=== PATIENT | female | born 1985 | race Caucasian/White ===

== ENCOUNTER → 2017-02-16 | Outpatient (CLI) | payer OTHER ==
[2017-02-16 18:02] LABS: CALCIUM 9.6 mg/dl (8.5-10.1)
[2017-02-16 18:08] LABS: BLOOD UREA NITROGEN 9 mg/dl (7-18); BUN/CREATININE RATIO 13.7 (10-20); CARBON DIOXIDE 29 mmol/L (21-32); CHLORIDE 103 mmol/L (98-107); CREATININE 0.67 mg/dl (0.60-1.20); GLUCOSE 82 mg/dl (70-99); SODIUM 140 mmol/L (136-145)
== END | disposition home or self-care (01) ==
LOC: C.LAB1850 16:38
PROVIDERS: ATTEND Nurse Practitioner Adult Health
DX: E03.9 Hypothyroidism, unspecified (principal); F41.9 Anxiety disorder, unspecified

== ENCOUNTER → 2017-03-02 | Outpatient (CLI) | payer OTHER ==
--- NOTE | 2017-03-02 14:36 | DIAGNOSTIC IMAGING REPORT ---
ULTRASOUND OF THE THYROID GLAND CLINICAL HISTORY: Thyroid nodule. COMPARISON STUDY: No priors. TECHNIQUE: Real-time, grayscale, and color flow sonography of the thyroid gland is performed utilizing a high-frequency linear transducer. Images are reviewed in the transverse and longitudinal planes. FINDINGS: Right lobe: The right lobe of the thyroid gland is normal in size and homogeneous in echotexture, measuring 3.9 x 1.4 x 1.4 cm. Left lobe: The left lobe of the thyroid gland is normal in size and homogeneous in echotexture, measuring 4.4 x 1.0 x 1.4 cm. Isthmus: The thyroid isthmus is normal in appearance and measures 0.3 cm in AP diameter. IMPRESSION: Unremarkable sonographic assessment of the thyroid gland. Electronically signed by: Rickie Yeager M.D. 03/02/2017 2:34 PM Dictated Date/Time: 03/02/2017 2:34 PM
== END | disposition home or self-care (01) ==
LOC: C.ULTR 14:11
PROVIDERS: ATTEND Internal Medicine Endocrinology, Diabetes & Metabolism
DX: E04.1 Nontoxic single thyroid nodule (principal)

== ENCOUNTER → 2017-03-09 | Outpatient (CLI) | payer OTHER ==
[2017-03-09 14:19] LABS: CALCULATED INSULIN SENSITIVITY 0.325; GLUCOSE LOG 1.9542; INSULIN FASTING 13.4 mU/L (3-25); INSULIN LOG 1.1271
[2017-03-09 14:20] LABS: THYROID STIMULATING HORMONE 1.56 uIu/ml (0.300-4.500)
== END | disposition home or self-care (01) ==
LOC: C.LAB1850 11:28
PROVIDERS: ATTEND Internal Medicine Endocrinology, Diabetes & Metabolism
DX: E03.9 Hypothyroidism, unspecified (principal); L68.0 Hirsutism; R19.7 Diarrhea, unspecified

== ENCOUNTER → 2017-04-06 | Outpatient (CLI) | payer OTHER ==
[2017-04-06 13:54] LABS: THYROID STIMULATING HORMONE 2.65 uIu/ml (0.300-4.500)
== END | disposition home or self-care (01) ==
LOC: C.LAB1850 11:18
PROVIDERS: ATTEND Internal Medicine Endocrinology, Diabetes & Metabolism
DX: L68.0 Hirsutism (principal); E28.2 Polycystic ovarian syndrome

== ENCOUNTER → 2017-09-23 | Outpatient (CLI) | payer OTHER ==
[2017-09-23 10:30] LABS: HEMOGLOBIN A1C 5.2 % (4.5-5.6)
== END | disposition home or self-care (01) ==
LOC: C.LAB1850 09:00
PROVIDERS: ATTEND Internal Medicine Endocrinology, Diabetes & Metabolism
DX: E03.9 Hypothyroidism, unspecified (principal); R19.7 Diarrhea, unspecified; L68.0 Hirsutism; E06.3 Autoimmune thyroiditis; E28.2 Polycystic ovarian syndrome

== ENCOUNTER → 2018-04-01 | Outpatient (CLI) | payer OTHER ==
--- NOTE | 2018-04-01 08:37 | DIAGNOSTIC IMAGING REPORT ---
(MARK ANTHONY/BLAD)RETROPERITON COMP CLINICAL HISTORY: 32 years-old Female presenting with N39.0 UTI (urinary tract infection)Concern of kidney stones. TECHNIQUE: Real-time grayscale and limited color Doppler ultrasound imaging of the kidneys and bladder was performed. COMPARISON: None. FINDINGS: Right kidney: Normal echogenicity of renal parenchyma. Right kidney measures 11.2 cm. Mild pelviectasis. No hydronephrosis. No convincing evidence of calculus or mass. Left kidney: Normal echogenicity of renal parenchyma. Left kidney measures 11.5 cm. No hydronephrosis. No convincing evidence of calculus or mass. Bladder: Normal. Bilateral ureteral jets present. Other: None. IMPRESSION: 1. Mild right pelviectasis, nonspecific. No convincing evidence of hydronephrosis. Electronically signed by: Edward Abrams M.D. 04/01/2018 8:35 AM Dictated Date/Time: 04/01/2018 8:34 AM
== END | disposition home or self-care (01) ==
LOC: C.ULTR 08:09
PROVIDERS: ATTEND Physician Assistant
DX: N39.0 Urinary tract infection, site not specified (principal)

== ENCOUNTER → 2018-04-07 | Outpatient (CLI) | payer OTHER | END | disposition home or self-care (01) | LOC: C.LAB1850 15:19 | PROVIDERS: ATTEND Nurse Practitioner Adult Health | DX: R30.0 Dysuria (principal); R10.9 Unspecified abdominal pain ==

== ENCOUNTER 2023-10-09 15:52 | Inpatient (IN) ==
[2023-10-09] MEDS ORDERED: LIDOCAINE 1% LOCAL 20 ML VIAL INFIL PRN (16:22)
[2023-10-09] MEDS ORDERED: LACTATED RINGER'S 1,000 ML IV PRN (16:22)
--- NOTE | 2023-10-09 16:38 | History & Physical Report ---
Date of Service October 09, 2023 Assessment & Plan (1) GDM (gestational diabetes mellitus): (2) Hypothyroid in , antepartum: Plan 38 yo G1 at 41 1/7 wga presents after attempted homebirth with animal keeper head VSJinny BNENETTT reassuring thus far, difficult to trace Labor - SVE for me /-1, palpable thin forebag. I discussed my concern that she has apparently been 8cm for a number of hours, animal keeper head tells me my station sounds like progress from her last check earlier today. Discussed possibility that forebag is the limiting factor but possible that there is cpd and that is why she has not delivered yet either. Discussed possibly just needs pitocin to help augment. She is not sure if she wants an epidural at this point, she was just fatigued from trying this at home without anything else. Discussed would not be a candidate for stadol given advanced dilation. She inquires what would be required for staying and I discussed at least an IV and labs, as long as fetus remains reassuring. Discussed arom to try to help augment, pitocin as well. But again discussed concern for possible need for CS given slow progress, possibly bigger baby given now 41+ weeks. She would like to discuss options with partner and animal keeper head. She is accepting of IV and labs to start GBS neg Admission and Anticipated Discharge Date Admission Date: October 09, 2023 History of Present Illness Chief Complaint: contractions, attempted delivery at home Primary Care Provider: TRI Chairez 38 yo G1 at 41 1/7 wga presents w/ contractions. Last seen at 39 1/7 wga on 09/25 after successful ECV 09/12. Has been working w/ animal keeper head group as well. She notes evening of 10/07 she started leaking fluid and continued to labor at home with them. Current animal keeper head that is with her and her partner says that at 2am, she was 7cm. She made it to 8cm around 10-11am, however a forebag was also palpated during this time. She says that the head was -3 at that time. Pt presented to L&D as she is just fatigued at this point, she is not sure if she wants an epidural or plan. 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 Allergies Allergy/AdvReac Type Severity Reaction Status Date / Time amoxicillin [From Augmentin] Allergy Unknown Hives Verified 09/25/23 15:53 cefaclor [From Ceclor] Allergy serum Verified 09/25/23 15:53 sickness ciprofloxacin [From Cipro] Allergy Gastrointestinal Verified 09/25/23 15:53 Upset clavulanic acid Allergy Hives Verified 09/25/23 15:53 [From Augmentin] gluten Allergy Gastrointestinal Verified 09/25/23 15:53 Upset Tdap Allergy Unknown Unknown Uncoded 09/25/23 15:53 Home Medications Medication Instructions Recorded Confirmed Type acetone (urine) test (Ketone Urine #50 04/10/23 09/25/23 Rx Test strips) blood sugar diagnostic (OneTouch #150 04/10/23 09/25/23 Rx Verio test strips) blood-glucose meter (OneTouch #1 04/10/23 09/25/23 Rx Verio Reflect Meter) lancets 33 gauge #150 04/10/23 09/25/23 Rx levothyroxine 50 mcg tablet 50 mcg PO DAILY 90 days #90 tabs 08/31/23 09/25/23 Rx albuterol sulfate 90 mcg/actuation UNKNOWN PRN shortness of breath or 09/12/23 09/25/23 History aerosol inhaler (Ventolin HFA) wheezing prenat.vits,cristian,reu-wczl-ukuuf 1 tab PO DAILY 09/12/23 09/25/23 History Patient History Medical History (Updated 09/12/23 @ 09:13 by Tez Ramey MD) Long COVID History of chicken pox Elderly primigravida Subclinical hypothyroidism COVID-19 Hyperlipidemia Anxiety Surgical History History of tonsillectomy Family History Father Arthritis Grandmother (Paternal) Stroke Colorectal cancer Mother Hypertension Thyroid disease Grandmother (Maternal) Thyroid cancer Colorectal cancer Grandfather (Paternal) Prostate cancer Aunt Thyroid disease Grandmother Colorectal cancer Other Breast cancer Social History Smoking Status: Never smoker Second Hand Exposure: No; Do You Dip or Chew Tobacco: No; Hx Alcohol Use: No Hx Substance Use: No Preferred Language: Israeli Communication Ability: Effective Visual Impairment: Limited Hearing Ability: Normal Manager Cardiac Required: No Beliefs That Will Affect Care: None marital status: marital status details: Cory Russo [phone] Current Living Situation: Spouse Current Living Situation Comment: engaged, lives with cory, roomate, dog current occupational status: employed current occupation: [employer] Feels Safe at Home: Yes Childhood Exposure to Second-Hand Smoke: Yes Diet: gluten free and regular caffeine: No Dental Care, Regularly: Yes Physical Activity Frequency: 3-4 Times per Week Seatbelt Use: always Sunscreen Use: Yes Do you think of yourself as: straight/heterosexual Assistive Devices: None Physical Exam Genitourinary: OB Exam Abdomen: + vertex (confirmed by bsus) and + estimated weight (8-9) Manual OB Exam: + cervical dilation 8 cm, + cervical effacement 90% and + station -1 OB Exam Monitor Tracing: + external FHT monitor used, + external uterine monitor used (q6) and + category I forebag palpated Results & Data Vital Signs (Past 12 Hours) Vital Signs Pulse BP 10/09/23 15:59 89 136/89 Laboratory Results OB Labs: Blood Type B Positive 09/12/23 Antibody Screen NEGATIVE 09/12/23 Hemoglobin 13.5 g/dl (12.0-16.0) 09/12/23 Hematocrit 38.9 % (37.0-47.0) 09/12/23 Mean Corpuscular Volume 84.7 fL (80.0-100.0) 09/12/23 Platelet Count 220 K/uL (130-400) 09/12/23 Rubella IgG Antibody Immune (Immune) 03/09/23 Rapid Plasma Reagin Nonreactive (Nonreactive) 03/09/23 Hepatitis B Surface Antigen. NON-REACTIVE (NON-REACTIVE) 03/09/23 Hepatitis C Antibody (EIA) NON-REACTIVE (NON-REACTIVE) 03/09/23 HIV (1&2) Ag and Ab Confirmation NON-REACTIVE (NON-REACTIVE) 03/09/23 Glucose 1 Hour 50 gm Load 160 mg/dl (70-130) H 04/23/23 OB Optional Labs: Chlamydia trachomatis RNA Not Detected (NotDetected) 03/09/23 Neisseria gonorrhoeae RNA Not Detected (NotDetected) 03/09/23 Thyroid Stimulating Hormone (TSH) 1.693 uIu/ml (0.300-4.500) 07/07/23 Labs Reviewed: GBS neg low risk cfdna - sln Diagnostic Findings anterior plac Coding Level of Care Code None Diagnoses GDM (gestational diabetes mellitus) O24.419 Hypothyroid in , antepartum O99.280; E03.9
[2023-10-09 16:43] LABS: Hematocrit (blood only) 41.2 % (37.0-47.0); Hemoglobin 14.3 g/dl (12.0-16.0); Mean Corpuscular Hemoglobin 29.2 pg (25.0-34.0); Mean Corpuscular Hgb Conc 34.7 g/dL (32.0-36.0); Mean Corpuscular Volume 84.3 fL (80.0-100.0); Mean Platelet Volume 9.8 fL (9.4-12.4); Platelet Count 199 K/uL (130-400); RDW Coefficient of Variation 13.5 % (11.5-14.5); RDW Standard Deviation 41.8 fL (36.4-46.3); Red Blood Count 4.89 M/uL (4.20-5.40)
--- NOTE | 2023-10-09 17:50 | Labor Progress Brief Note ---
Date of Service October 09, 2023 Subjective pt accepts arom, labs have returned Assessment & Plan (1) GDM (gestational diabetes mellitus): (2) Hypothyroid in , antepartum: Plan 38 yo G1 at 41 1/7 wga presents after attempted homebirth with jig box operator VSS NST reassuring thus far, difficult to trace Labor - Labs returned, pt accepted arom, performed and ?light mec. Discussed will see if this helps ctx, if no change in a few hours would rec pit given prolonged rupture. Ok to augment for now as baby and mom look ok, they will discuss future possibility of pit GBS neg epidural prn Admission and Anticipated Discharge Date Admission Date: October 09, 2023 Physical Exam Genitourinary: Manual OB Exam: + cervical dilation 8 cm, + cervical effacement 90%, + station -1 and + amniotic fluid (arom forebag, light mec?) OB Exam Monitor Tracing: + external FHT monitor used, + external uterine monitor used (q6) and + category I Results & Data Vital Signs (Past 12 Hours) Vital Signs Temp Pulse Resp BP O2 Del Method 10/09/23 17:47 80 132/68 10/09/23 17:29 85 143/80 H 10/09/23 17:16 71 135/76 10/09/23 17:00 83 141/81 H 10/09/23 16:54 97.9 F 18 Room Air 10/09/23 15:59 89 136/89 Coding Level of Care Code None Diagnoses GDM (gestational diabetes mellitus) O24.419 Hypothyroid in , antepartum O99.280; E03.9
--- NOTE | 2023-10-09 21:06 | Labor Progress Brief Note ---
Date of Service October 09, 2023 Subjective presented to assess pushing Assessment & Plan (1) GDM (gestational diabetes mellitus): (2) Hypothyroid in , antepartum: Plan 38 yo G1 at 41 1/7 wga presents after attempted homebirth with school director ERIN KULKARNI reassuring thus far, difficult to trace Labor - Pt pushing for about 45 min. On her back which she does not prefer, some descent of head is noted but feels like soft tissue rather than skull is descending. Seems a little better on hands and knees but still similar. Head feels about +1. Reviewed this with pt, she asks if I need to continue assessing while she is pushing. Discussed I have no other way to assess if progress is being made. Reviewed my findings on exam, which may or may not suggest cpd however she has just started pushing and that it can take time for pushing to demonstrate progress. She verbalized understanding. Will continue to assess Admission and Anticipated Discharge Date Admission Date: October 09, 2023 Results & Data Vital Signs (Past 12 Hours) Vital Signs Temp Pulse Resp BP Pulse Ox O2 Del Method 10/09/23 20:56 129 H 98 10/09/23 20:51 117 H 98 10/09/23 20:44 112 H 99 10/09/23 20:39 88 99 10/09/23 20:34 106 H 100 10/09/23 20:29 99 H 100 10/09/23 20:24 96 H 100 10/09/23 20:19 93 H 99 10/09/23 19:27 97 H 140/77 10/09/23 19:00 18 10/09/23 19:00 18 10/09/23 18:47 98.1 F 81 140/76 10/09/23 18:00 18 10/09/23 18:00 18 10/09/23 17:59 89 139/77 10/09/23 17:47 80 132/68 10/09/23 17:30 20 10/09/23 17:30 20 10/09/23 17:29 85 143/80 H 10/09/23 17:16 71 135/76 10/09/23 17:00 83 18 141/81 H 10/09/23 16:54 97.9 F 18 Room Air 10/09/23 15:59 89 136/89 Coding Level of Care Code None Diagnoses GDM (gestational diabetes mellitus) O24.419 Hypothyroid in , antepartum O99.280; E03.9
[2023-10-09] MEDS: OXYTOCIN 30 UNITS/NSS 30 UNITS/500 ML BAG IV PRN ×2 (22:06→22:35)
[2023-10-09] MEDS ORDERED: OXYTOCIN 30 UNITS/NSS 30 UNITS/500 ML BAG IV PRN (22:53)
[2023-10-09] MEDS ORDERED: HYDROCORTISONE ACETATE 25 MG SUPP PR PRN (22:53)
[2023-10-09] MEDS ORDERED: BENZOCAINE 20% SPRY 85 APPLN/85 GM CAN EXT PRN (22:53)
[2023-10-09] MEDS ORDERED: DIPHTHER/TETAN/PERTUS Vaccine (Tdap, Adol/Adult) 0.5mL IM ONE (22:53)
[2023-10-09] MEDS ORDERED: CLINDAMYCIN/D5W 900 MG/50 ML BAG IV ONE (23:00)
--- NOTE | 2023-10-09 23:03 | Delivery Summary ---
Vaginal Delivery Summary Date of Service October 09, 2023 Vaginal Delivery Summary and 3rd Degree LAC PREOPERATIVE DIAGNOSIS: 1. Single intrauterine at 41 1/7 wga 2. Labor 3. Prolonged rupture of membranes 4. A1GDM 5. Hypothyroid 6. AMA POSTOPERATIVE DIAGNOSIS: 1. Single intrauterine at 41 1/7 wga 2. Labor 3. Prolonged rupture of membranes 4. A1GDM 5. Hypothyroid 6. AMA 7. Delivered PROCEDURE: 1. Normal spontaneous vaginal delivery. SURGEON: Delfina Baker MD ANESTHESIA: Local anesthesia ESTIMATED BLOOD LOSS: 400 mL FLUIDS: Continuous LR. URINE OUTPUT: None. COMPLICATIONS: None. CONDITION: Stable. INDICATIONS: 38 yo G1 at 41 1/7 wga presented for evaluation after spontaneous rupture of membranes two days ago and labor at home. Was laboring at home yesterday with heat treater group and with shift change, her heat treater noted her to be 7cm early this morning and progressed to 8cm with forebag palpated. However due to concern of inability to rupture forebag due to high station and maternal fatigue, she presented for evaluation. On arrival, she was found to be 7-8cm with bulging forebag. She was counseled regarding options and accepted arom of forebag. Following arom of forebag, she continued to progress to complete and desired to push. FINDINGS: A viable male infant, weight pending with Apgars of 8 and 9 at 1 and 5 minutes respectively. SPECIMEN: Cord blood OPERATIVE REPORT: The patient progressed to 10 cm, 100% effaced and +2 station, pushed over intact perineum with anesthesia to deliver a viable male infant, weight and Apgars as above. Head of delivered in VIJI position. No nuchal cord was present. Body and shoulders were delivered without difficulty. was delivered to maternal abdomen and nursing staff. Delayed cord clamping was performed for 60 seconds. Cord was clamped and cut. Cord blood was obtained. Placenta delivered spontaneously intact with 3-vessel cord. IV oxytocin and fundal massage were given for excellent hemostasis. Vagina, cervix, perineum, and placenta were inspected. A 3a degree laceration was noted, rectal exam confirmed no involvement of the rectal mucosa. The capsule was reapproximated using 2-0 vicryl. Remainder of laceration was repaired using 3-0 vicryl in the usual fashion. Rectal exam confirmed no stitches in the rectum. A single dose of clindamycin was given for antibiotic prophylaxis. Sponge and needle counts correct x2. No sponges were left behind. Mother and stable in immediate period. [facility] [place] Vaginal Delivery Charge Vaginal Delivery Codes: 44161 global code for the antepartum, delivery, and post- Delivery Type Details: and 3rd Degree LAC
[2023-10-09] MEDS: IBUPROFEN 600 MG TAB PO PRN (23:28)
[2023-10-10] MEDS: IBUPROFEN 600 MG TAB PO PRN ×4 (04:36→20:47)
--- NOTE | 2023-10-10 06:16 | Obstetrical Progress Note ---
Date of Service <Antonina Hall DO - Last Filed: 10/10/23 06:16> October 10, 2023 Assessment & Plan <Antonina Hall DO - Last Filed: 10/10/23 06:16> (1) care following vaginal delivery: (2) Hypothyroid in , antepartum: (3) GDM (gestational diabetes mellitus): (4) Elderly primigravida: Trimester: third trimester Qualified Code(s): O09.513 - Supervision of elderly primigravida, third trimester Plan Feels well today. Eating well, voiding well, ambulating well. Pain well controlled with prn oral meds. Routine care; OOB, ambulation, diet progression as tolerated. Anticipate discharge 24-48 hours after , likely tomorrow. After discharge will have 6 week follow-up with Dr. Baker. <Delfina Baker MD - Last Filed: 10/10/23 07:43> (1) care following vaginal delivery: (2) Hypothyroid in , antepartum: (3) GDM (gestational diabetes mellitus): (4) Elderly primigravida: Subjective <Antonina Hall DO - Last Filed: 10/10/23 06:16> Pt is a 38 y/o female who is PPD#1 following at 41 weeks. complicated by AMA, GDM, hypothyroidism. Pt states that today she is overall feeling well, just tired. She states she has been up moving around since the delivery, voiding, and tolerating oral intake without issue. She is breast feeding and it has been going well. Her cramping is mild, mostly when breast feeding and she has occasional persistent lochia. She noted that last night she had some chest tightness that is now mostly resolved. No questions or complaints at this time. Would like to maybe go home tomorrow. Constitutional: no fever, no chills or no sweats Respiratory: no dyspnea Cardiovascular: no chest pain or no palpitations Breast: no breast pain Genitourinary (female): no dysuria Neurologic: no headache(s) no changes in vision, no headaches Physical Exam <Antonina Hall DO - Last Filed: 10/10/23 06:16> General: Alert, oriented. No acute distress. Cardiac: Regular rate and rhythm, no murmurs, rubs, or gallops. Respiratory: Clear to auscultation bilaterally, no wheezes/rales/rhonchi. No increased work of breathing. Symmetrical chest rise. No respiratory distress. Abdomen: Soft, nontender, nondistended. Bowel sounds present. Uterus: Uterine fundus firm, palpable below the umbilicus. Lower extremities: No lower extremity edema or swelling. No deep calf pain. Results & Data <Antonina Hall DO - Last Filed: 10/10/23 06:16> Vital Signs (Past 12 Hours) Vital Signs Temp Pulse Pulse Resp BP BP Pulse Ox 10/10/23 04:18 36.5 C 91 H 18 125/81 97 10/10/23 01:15 37.0 C 20 126/61 97 10/10/23 00:45 18 10/10/23 00:42 82 139/66 10/10/23 00:27 91 H 122/69 10/10/23 00:15 18 10/10/23 00:12 93 H 120/69 10/09/23 23:57 83 121/57 L 10/09/23 23:42 85 139/63 10/09/23 23:40 18 10/09/23 23:27 89 117/61 10/09/23 23:25 18 10/09/23 23:12 85 128/62 10/09/23 23:10 18 10/09/23 22:57 88 131/69 10/09/23 22:55 36.8 C 18 10/09/23 22:55 10/09/23 22:42 83 143/62 H 10/09/23 22:40 36.7 C 85 18 128/62 10/09/23 21:54 123 H 100 10/09/23 21:49 118 H 99 10/09/23 21:46 108 H 85 L 10/09/23 21:44 102 H 99 10/09/23 21:41 114 H 138/67 10/09/23 21:39 112 H 99 10/09/23 21:37 117 H 92 10/09/23 21:36 18 10/09/23 21:36 37.0 C 18 10/09/23 21:34 103 H 99 10/09/23 21:31 114 H 90 10/09/23 21:28 98 H 98 10/09/23 21:23 118 H 98 10/09/23 21:17 105 H 94 10/09/23 21:16 108 H 98 10/09/23 21:12 97 H 91 10/09/23 21:11 105 H 94 10/09/23 21:07 113 H 93 10/09/23 21:06 109 H 99 10/09/23 21:01 115 H 98 10/09/23 20:56 129 H 98 10/09/23 20:51 117 H 98 10/09/23 20:44 112 H 99 10/09/23 20:39 88 99 10/09/23 20:34 106 H 100 10/09/23 20:29 99 H 100 10/09/23 20:24 96 H 100 10/09/23 20:19 93 H 99 10/09/23 19:27 97 H 140/77 10/09/23 19:00 18 10/09/23 19:00 18 10/09/23 18:47 36.7 C 81 140/76 O2 Del Method 10/10/23 04:18 Room Air 10/10/23 01:15 Room Air 10/10/23 00:45 10/10/23 00:42 10/10/23 00:27 10/10/23 00:15 10/10/23 00:12 10/09/23 23:57 10/09/23 23:42 10/09/23 23:40 10/09/23 23:27 10/09/23 23:25 10/09/23 23:12 10/09/23 23:10 10/09/23 22:57 10/09/23 22:55 10/09/23 22:55 Room Air 10/09/23 22:42 10/09/23 22:40 10/09/23 21:54 10/09/23 21:49 10/09/23 21:46 10/09/23 21:44 10/09/23 21:41 10/09/23 21:39 10/09/23 21:37 10/09/23 21:36 10/09/23 21:36 10/09/23 21:34 10/09/23 21:31 10/09/23 21:28 10/09/23 21:23 10/09/23 21:17 10/09/23 21:16 10/09/23 21:12 10/09/23 21:11 10/09/23 21:07 10/09/23 21:06 10/09/23 21:01 10/09/23 20:56 10/09/23 20:51 10/09/23 20:44 10/09/23 20:39 10/09/23 20:34 10/09/23 20:29 10/09/23 20:24 10/09/23 20:19 10/09/23 19:27 10/09/23 19:00 10/09/23 19:00 10/09/23 18:47 Supervising Physician <Delfina Baker MD - Last Filed: 10/10/23 07:43> Co-Signing Physician Notes Resident Physician Supervision Note: I interviewed and examined the patient. Discussed with Dr. Hall and agree with findings and plan as documented in the note. Any exceptions or clarifications are listed here: PP1 s/p , doing well. VSS, exam benign and wnl. Discussed bowel regimen given 3rd, continue routine care Documented By: Delfina Baker MD Resident Activity Tracking <Antonina Hall DO - Last Filed: 10/10/23 06:16> Resident Involvement: Resident Care Provided Care Provided: OB Delivery
[2023-10-10] MEDS: LEVOTHYROXINE SODIUM 50 MCG TABLET PO SCH (06:57)
[2023-10-10] MEDS: PRENATAL VITAMIN 1 TAB PO SCH (08:58)
[2023-10-10] MEDS: DOCUSATE SODIUM 100 MG CAP PO SCH ×2 (08:59→20:47)
[2023-10-10] MEDS: FERROUS SULFATE 325 MG TAB PO SCH (08:59)
[2023-10-10] MEDS ORDERED: DOCUSATE SODIUM 100 MG CAP PO SCH (09:00)
[2023-10-10] MEDS ORDERED: bisacodyL 5 MG TABEC PO SCH (20:00)
[2023-10-10] MEDS: ACETAMINOPHEN 325 MG TAB PO PRN (23:41)
[2023-10-11] MEDS: IBUPROFEN 600 MG TAB PO PRN ×2 (03:30→09:14)
[2023-10-11] MEDS: LEVOTHYROXINE SODIUM 50 MCG TABLET PO SCH (06:32)
[2023-10-11] MEDS: ACETAMINOPHEN 325 MG TAB PO PRN (06:36)
--- NOTE | 2023-10-11 08:11 | Obstetrical Progress Note ---
Date of Service October 11, 2023 Assessment & Plan (1) care following vaginal delivery: Plan stable, doing well. ready to go home. instructions reviewed. f/u 6wk pp check. breast, rhpos, ri. Day #:: 1 Subjective Ambulation: ambulating normally Voiding: no voiding problems Diet Tolerance:: regular diet Lochia:: Small Feeding Type:: breast feeding no issues with pain. asking about pericare. Constitutional: + as per Subjective / HPI Physical Exam Constitutional WD/WN, vitals as above Respiratory normal respiratory effort, lungs clear to auscultation Cardiovascular Rate/Rhythm: regular rate and regular rhythm Gastrointestinal (Abdomen) Inspection/Auscultation: abdomen normal to inspection Percussion/Palpation: abdomen soft Fundus firm 2cm down Musculoskeletal nt calves no edema Neurologic grossly normal Psychiatric A+Ox3, euthymic affect Results & Data Vital Signs (Past 12 Hours) Vital Signs Temp Pulse Resp BP Pulse Ox O2 Del Method 10/11/23 07:35 97.3 F L 71 16 116/77 98 Room Air 10/10/23 23:30 97.9 F 83 16 98/66 L 98 Room Air 10/10/23 20:40 97.3 F L 86 17 104/71 98 Room Air
[2023-10-11] MEDS: PRENATAL VITAMIN 1 TAB PO SCH (09:14)
[2023-10-11] MEDS: FERROUS SULFATE 325 MG TAB PO SCH (09:14)
[2023-10-11] MEDS: DOCUSATE SODIUM 100 MG CAP PO SCH (09:14)
== END 2023-10-11 14:54 | disposition home or self-care (01) | DRG 768 ==
LOC: 4S1 15:52 → 4E2 10-10 01:00
DX: Z37.0 Single live birth; E03.9 Hypothyroidism, unspecified; Z3A.41 41 weeks gestation of pregnancy; O99.284 Endocrine, nutritional and metabolic diseases complicating childbirth; O70.20 Third degree perineal laceration during delivery, unspecified; O24.429 Gestational diabetes mellitus in childbirth, unspecified control